=== PATIENT | female | born 1980 | race Caucasian/White ===

== ENCOUNTER 2023-12-11 11:49 | Day surgery (SDC) | payer BC, MEDICAID, SELFPAY ==
[2023-12-11 12:12] VITALS: BMI 22.6
[2023-12-11 12:19] VITALS: BMI 22.6
[2023-12-11 12:35] VITALS: BP 124/82; PULSE 62; RESP 16; TEMP 36.9; O2SAT 100
[2023-12-11] MEDS: Lactated Ringers 1,000 ML 100 ML IVCONT (12:41)
--- NOTE | 2023-12-11 13:15 | HO.ANESPROP2 ---
HPI - Anesthesia Eval Consult details Narrative: 42 yo female patient for EGD, Colonoscopy PMF Active Problems Active Problems: Asthma- remote history. No inhaler use for over 10 years Past Medical History Medical History (Updated 12/11/23 @ 12:11 by Natalya Hutchison RN) Seizure History of miscarriage Pelvic congestion Anxiety Nutcracker phenomenon of renal vein Gilbert disease Family History Family history of problems with anesthesia: No Surgical History Surgical History (Updated 12/11/23 @ 12:07 by Natalya Hutchison RN) History of pelvic surgery History of dilation and curettage Hx of tubal ligation History of Problems with Anesthesia: No Social History Social History Patient Tobacco Use Status: Former Tobacco user Use of substances other than those prescribed or required for medical reasons: No Are you DNR?: No Advance Directives: No Advance Directives Information Provided: Yes Meds Allergies Allergy/AdvReac Type Severity Reaction Status Date / Time barium sulfate Allergy Hives Verified 12/11/23 12:08 esomeprazole [From Nexium] Allergy Hives Verified 12/11/23 12:09 Sulfa (Sulfonamide Allergy Hives Verified 12/11/23 12:09 Antibiotics) sulfamethoxazole Allergy Hives Verified 12/11/23 12:09 [From Bactrim] trimethoprim [From Bactrim] Allergy Hives Verified 12/11/23 12:09 Active Medications: Current Medications Sodium Biphosphate/Sodium Phosphate (Sodium Phosphate,Walton-Dibasic 133 Ml Enema) 133 ml KS ONCE PRN PRN Reason: Poor Colonoscopy Prep Results Home Medications Medication Instructions Recorded Confirmed Last Taken Type lorazepam 0.5 mg tablet (Ativan) mg 12/10/23 12/11/23 10:30 History ondansetron HCl 8 mg tablet mg 12/10/23 12/10/23 Unknown History oxycodone-acetaminophen 5 mg-325 tab 12/10/23 Unknown History mg tablet (Percocet) Exam Height,Weight and Vital Signs: Height 5 ft 7 in Weight 65.431 kg Last Vital Signs Temp 98.4 F 12/11/23 12:35 Pulse 62 12/11/23 12:35 Resp 16 12/11/23 12:35 BP 124/82 12/11/23 12:35 Pulse Ox 100 12/11/23 12:35 O2 Del Method Room Air 12/11/23 12:35 Airway Mallampati Class: II TM Dist: >3cm Neck ROM: Full Loose/Missing/Broken Teeth: Yes (Missing teeth back right and left) Heart: RRR Lungs: CTAB Assessment and Plan Assessment Anesthesia Assessment: Anesthesia Plan Discussed and Chart Reviewed Final Anesthetic Review Family History of Problems with Anesthesia: No History of Problems with Anesthesia: No NPO: Yes ASA Class: II Final Preanesthetic Review: No Changes in Pt Med Stat, Meds/Allgs Chart Reviewed, Consent Obtained/Reviewed and Anes Risks/Benef Reviewed Patient Risk: Intermediate Procedure Risk: Low Assessment/Block/Sedation in SS: Assess/Block/Sedation-SS Anesthetic Plan Anesthetic Plan: MAC: and TIVA Disposition: Standard PACU
[2023-12-11] MEDS: Metoclopramide HCl 10 MG/2 ML VIAL IVPUSH (13:30)
[2023-12-11] MEDS: ondansetron HCL 4 MG/2 ML VIAL IVPUSH (13:33)
[2023-12-11 14:54] VITALS: BP 105/50; PULSE 71; RESP 12; TEMP 36.5; O2SAT 100
--- NOTE | 2023-12-11 14:58 | PM.OP ---
Brief Operative Note Date of Service: 12/11/23 Pre-op diagnosis: Nausea, Diarrhea, Family history of colorectal polyps Post-op diagnosis: other (Small hiatal hernia, Colon polyps) Procedure: EGD with biopsies, Colonoscopy to the cecum and TI with biopsies and cold snare polypectomy x 2 at 20cm Surgeon: Houston Mcgraw MD Anesthesia: MAC Was an Safety Teacher used for this Procedure?: No Estimated blood loss (mL): 2.0 Pathology: other (A. Descending duodenum B. Gastric antrum C. EG Junction at 38cm D. Ascending colon E. Descending colon F. Polyps at 20cm) Condition: stable Disposition: PACU
[2023-12-11 15:09] VITALS: BP 100/60; PULSE 47; RESP 12; O2SAT 100
[2023-12-11 15:24] VITALS: BP 108/66; PULSE 70; RESP 20; TEMP 36.5; O2SAT 100
--- NOTE | 2023-12-11 17:19 | OP_ITS ---
DATE OF SERVICE: 12/11/2023 SURGEON: Houston Mcgraw MD INDICATIONS: The patient presents for evaluation of nausea, irregular bowel movements, occasional rectal bleeding, family history of colorectal polyps, and colorectal cancer screening. Full consent was obtained from her for this, including risks of bleeding and perforation. PREOPERATIVE DIAGNOSIS: POSTOPERATIVE DIAGNOSIS: PROCEDURE PERFORMED: ESTIMATED BLOOD LOSS: COMPLICATIONS: ANESTHESIA: Monitored anesthesia care. ASSISTANTS: SPECIMENS: PREOPERATIVE DIAGNOSES: Nausea, irregular bowel movements, family history of colorectal polyps, colorectal cancer screening, and rectal bleeding. POSTOPERATIVE DIAGNOSES: Nausea, irregular bowel movements, family history of colorectal polyps, colorectal cancer screening, rectal bleeding, minimal hiatal hernia, rule out celiac disease, rule out microscopic colitis, colon polyps, small internal hemorrhoids. PROCEDURES PERFORMED: Esophagogastroduodenoscopy with biopsies, and colonoscopy to the cecum and terminal ileum with biopsies, and cold snare polypectomy x 2. DESCRIPTION OF PROCEDURE: The patient was placed in the left lateral decubitus position. The Olympus video gastroscope was passed in the posterior oropharynx and upper esophagus under direct vision. The scope was passed slowly to the distal esophagus. The gastroesophageal junction appeared normal at 38 cm. There was no sign of any esophagitis nor Arnold's esophagus. The scope entered the stomach. There was a minimal hiatal hernia. The scope was advanced to the pylorus and the duodenum was cannulated to the descending portion. The duodenum, including the bulb, appeared normal without mass or ulceration. Biopsies were obtained from the descending duodenum. The scope was withdrawn back in the stomach. The gastric antrum and body appeared normal with good peristalsis. The scope was retroflexed visualizing the proximal stomach carefully, which appeared normal, without any sign of mass or ulceration. The scope was straightened. Biopsies were obtained from the gastric antrum. The scope was withdrawn back to the esophagus. Biopsies were obtained at the EG junction at 38 cm. Proximal to that the esophageal mucosa appeared normal. The scope was withdrawn from the patient. She was turned around for the colonoscopy. The digital rectal exam revealed no abnormalities. The Olympus video pediatric colonoscope was then entered into the rectum and advanced easily to the cecum. Once in the cecum, I did identify normal-appearing cecal pouch with appendiceal orifice and a normal-appearing ileocecal valve. The terminal ileum was cannulated and appeared normal. The scope was withdrawn back in the colon. The entire cecum and ileocecal valve appeared normal. The scope was slowly withdrawn, assessing all mucosal surfaces carefully. Preparation was excellent. I did not visualize any sign of colitis nor any angiodysplasias. Random biopsies were obtained in the ascending and descending colon. At 20 cm there were 2 approximately 5 mm probable hyperplastic polyps which were each removed by cold snare polypectomy and recovered by suction. The polypectomy sites appeared clean, without any sign of residual polyp nor significant bleeding. I did not visualize any other polyps. In the rectum, the scope was retroflexed, visualizing some small internal hemorrhoids, but no other pathology. The rectal mucosa appeared normal. The scope was straightened out and withdrawn from the patient. She tolerated both procedures well and was returned to the recovery area in stable condition. IMPRESSION: 1. Small colon polyps, status post cold snare polypectomy x 2. 2. Rule out microscopic colitis. 3. Internal hemorrhoids. 4. Minimal hiatal hernia. 5. Rule out celiac disease. PLAN: The results of the pathology will be checked. Even if these are not tubular adenomas, I would recommend a followup coloscopy in 5 years given her family history of significant colorectal polyps in her sister. She was advised to use omeprazole daily for a month or two to see if that helps with her nausea. She was advised to use Metamucil regularly to see if that helps with her irregular bowel movements. She was advised to do her laboratories that I ordered when I first saw her in my office. She will be scheduled for a followup visit as well. She was advised to call sooner as needed. This has been discussed with her father. She was advised not to use any aspirin and NSAIDs for a week. MD ANSLEY Grady/EDIS / [phone] MTDOanh
== END 2023-12-11 15:51 | disposition home or self-care (01) ==
PROVIDERS: PCP Registered Nurse; Visit Provider Internal Medicine
PROC: (CPT 45385; principal; 2023-12-11 13:00)
DX: K62.5 Hemorrhage of anus and rectum (principal); R19.4 Change in bowel habit; K63.5 Polyp of colon; Z83.719 Family history of colon polyps, unspecified; K64.8 Other hemorrhoids; R19.8 Other specified symptoms and signs involving the digestive system and abdomen; R11.0 Nausea; K44.9 Diaphragmatic hernia without obstruction or gangrene; E80.4 Gilbert syndrome; I87.1 Compression of vein; N94.89 Other specified conditions associated with female genital organs and menstrual cycle; F41.9 Anxiety disorder, unspecified; Z79.899 Other long term (current) drug therapy; Z88.1 Allergy status to other antibiotic agents; Z88.2 Allergy status to sulfonamides; Z91.041 Radiographic dye allergy status; Z98.890 Other specified postprocedural states; Z87.891 Personal history of nicotine dependence
CPT/HCPCS: 45385; 45380; 43239; 88305; 88313; 88342; J2250; J2405; J2704; J2765

== ENCOUNTER 2025-07-05 14:09 | Outpatient (REF) | payer OTHER, MEDICAID, SELFPAY ==
[2025-07-05 17:52] LABS: MANUAL DIFF FLAG NO
[2025-07-05 18:25] LABS: Hematocrit 35.9 % (37.0-47.0); Hemoglobin 12.4 g/dl (12.0-16.0); Imm Gran Abs Auto 0.02 X10*3/uL (0.00-0.03); Imm Gran Pct Auto 0.3 % (0.0-0.4); Lymphocytes Absolute Auto 1.5 X10*3/uL (1.2-4.9); Mean Corpuscular HGB Conc 34.5 g/dl (31.0-35.0); Mean Corpuscular Hemoglobin 32.0 pg (27.0-33.0); Mean Corpuscular Volume 92.5 fL (80.0-98.0); NRBC Abs Auto 0.000 X10*3/uL (0.0-0.012); NRBC Pct Auto 0.0 /100WBC (0.0-0.2); Platelet Count 226 X10*3/uL (160-400); Red Blood Count 3.88 X10*6/uL (4.20-5.50); White Blood Count 7.4 X10*3/uL (4.8-10.8)
[2025-07-05 18:37] LABS: Alanine Aminotransferase 26 U/L (0-31); Albumin Level 5.0 g/dL (3.5-5.0); Alkaline Phosphatase 50 U/L (39-117); Anion Gap 12 (12-20); Aspartate Amino Transferase 26 U/L (5-31); Blood Urea Nitrogen 19 mg/dL (9-16); Calcium 9.1 mg/dL (8.4-10.2); Carbon Dioxide 25 mmol/L (22-29); Chloride 107 mmol/L (96-108); Cholesterol 187 mg/dL (<200); Estimated Glomerular Filt Rate > 60; HDL Cholesterol 50 mg/dL (>40); Magnesium 2.1 mg/dL (1.6-2.6); Potassium 4.0 mmol/L (3.3-5.1); Sodium 140 mmol/L (135-145); Total Protein 7.7 g/dL (6.5-8.0); Triglycerides 114 mg/dL (<150)
[2025-07-05 18:59] LABS: Folate 12.3 ng/mL (> or = 4.0); Vitamin B12 433 pg/mL (200-900)
[2025-07-06 08:38] LABS: HBsAGNum1 0.44 S/CO (0.00-0.99); HIV Num 1 0.05 S/CO (0.00-0.99); Hepatitis B Surface Antigen Negative (Negative); ~HepC Num1 0.06 S/CO (0.00-0.79); ~Hepatitis B Surface Antibody REACTIVE (Nonreactive); ~Hepatitis C Antibody Nonreactive (Nonreactive)
[2025-07-10 10:33] LABS: VITAMIN D (1,25 OH) D3 39 pg/mL; Vit D (1,25-Dihydroxy) Total 39 pg/mL (18-72); Vitamin D (1,25 OH) D2 <8 pg/mL
== END 2025-07-05 14:10 | disposition home or self-care (01) ==
LOC: HO.HKASLDS 14:09
PROVIDERS: PCP Student in an Organized Health Care Education/Training Program; Visit Provider Student in an Organized Health Care Education/Training Program
DX: R06.83 Snoring (principal); R53.82 Chronic fatigue, unspecified; N60.19 Diffuse cystic mastopathy of unspecified breast; N94.89 Other specified conditions associated with female genital organs and menstrual cycle; F41.1 Generalized anxiety disorder; N92.0 Excessive and frequent menstruation with regular cycle; K55.1 Chronic vascular disorders of intestine; I87.1 Compression of vein; N95.1 Menopausal and female climacteric states; Z13.1 Encounter for screening for diabetes mellitus
CPT/HCPCS: 36415; 80053; 80061; 82607; 82652; 82746; 83036; 83735; 84443; 85025; 86706; 86803; 87340; 87389; 96127

== ENCOUNTER 2025-07-05 14:09 | Outpatient (AMB) | payer OTHER, MEDICAID, SELFPAY ==
--- OUTSIDE RECORDS SUMMARY | 2024-04-23 09:00 | XMS_ITS ---
Author Organization [facility] Address [address] [place] [address] Care Team Providers Care Brim Pouncer Name Role Phone Kennedi Avila DNP Primary Care Provider Houston Jones [phone] REASON FOR VISIT Patient presents today for Nausea, irregular bowel habits, rectal bleeding Encounters Encounter Location Date Provider Diagnosis [facility] [address] [place] [id number] 04/23/2024 Houston Mcgraw Plan Of Treatment No Information Progress Notes * MARCOS IVEYB:1980 ([age] yo F)Acc No.[id number]:04/23/2024 Progress Notes Patient: MEENA VARELA Provider: Vinh Mcgraw MD :1980 A ge:43 Y S ex:Female Date:04/23/2024 Address:[address] [place], [place] [id number] Pcp:Kennedi Avila DNP Subjective: * Chief Complaints: * 1 . Patient presents today for Nausea, irregular bowel habits, rectal bleeding. * Medical History: Objective: * Vitals: Assessment: Plan: * Treatment: * * The named appointment provid er may or may not be the originator of this progress note, and it is not deemed complete until electronically signed by the appointment provider. Sign off status: Pending * Provider: Vinh Mcgraw MD Date: 0 04/23/2024 Generated for Colettei ng/Famaggieg/eTransmitting on: 05:22 PM EDT
--- OUTSIDE RECORDS SUMMARY | 2024-06-15 10:40 | XMS_ITS ---
Author Organization [facility] Address [address] [place] [address] Care Team Providers Care Assembler Product Name Role Phone Kennedi Avila DNP Primary Care Provider Houston Jones [phone] REASON FOR VISIT Patient presents today for nausea, irregular bowel habits, rectal bleeding Encounters Encounter Location Date Provider Diagnosis [facility] [address] [place] [phone] 06/15/2024 Houston Mcgraw Plan Of Treatment No Information Progress Notes * MARCOS IVEYB:1980 ([age] yo F)Acc No.[id number]:06/15/2024 Progress Notes Patient: MEENA VARELA Provider: Vinh Mcgraw MD :1980 A ge:43 Y S ex:Female Date:06/15/2024 Address:[address] [place], [place] [id number] Pcp:Kennedi Avila DNP Subjective: * Chief Complaints: * 1 . Patient presents today for nausea, irregular bowel habits, rectal bleeding. * Medical History: Objective: * Vitals: Assessment: Plan: * Treatment: * * The named appointment provid er may or may not be the originator of this progress note, and it is not deemed complete until electronically signed by the appointment provider. Sign off status: Pending * Provider: Vinh Mcgraw MD Date: 0 06/15/2024 Generated for Colettei ng/Famaggieg/eTransmitting on: 1 05:22 PM EDT
--- NOTE | 2025-07-05 14:23 | A.OFFPC_ITS ---
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 Required: No Accompanied by: Self / Same As Patient Allergies barium sulfate Allergy (Verified 07/05/25 14:24) Hives esomeprazole (From Nexium) Allergy (Verified 07/05/25 14:24) Hives Sulfa (Sulfonamide Antibiotics) Allergy (Verified 07/05/25 14:24) Hives sulfamethoxazole (From Bactrim) Allergy (Verified 07/05/25 14:24) Hives trimethoprim (From Bactrim) Allergy (Verified 07/05/25 14:24) Hives Tobacco use date assessed: 07/05/25 Dental Screening Dental Screen Date: 07/05/25 Did you have a dental visit in the last 12 months?: Yes Did you have a dental problem in the last 6 months where you did not have access to dental care?: No Was dental information given to patient?: Patient has dentist HPI HPI Comments History of Present Illness Details History of Present Illness The patient is a 44-year-old female presenting for primary care management and follow-up on multiple vascular compressions and other health concerns. Superior mesenteric artery syndrome: - Diagnosed a few years ago, the patient experiences compression of the duodenum by the superior mesenteric artery, leading to symptoms managed with Zofran to improve quality of life. 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 Pelvic congestion syndrome: - Initially diagnosed with pelvic conges tion syndrome, the patient underwent coil embolization and sclerotherapy, which did not alleviate symptoms. Fibrocystic breast changes: - Following a mammogram in 2023, two lum ps were identified in the right breast, with a biopsy confirming fibrocystic changes; further imaging of the left breast is pending. Generalized anxiety disorder: - The patient has a history of generaliz ed anxiety disorder, managed with lorazepam as needed, following unsuccessful trials of SSRIs and therapy. Menopausal symptoms: - The patient experiences night sweats a nd sleep disturbances, previously managed with estradiol and progesterone, which were discontinued due to clinic closure. Heavy menstrual bleeding with clotting: - The patient reports heavy menstrual bl eeding with clotting, which has been progressively worsening. Review of Systems - Cardiovascular: Denies chest pain or p alpitations. - Respiratory: Reports snoring and occas ional loud snoring, denies dyspnea. - Gastrointestinal: Reports flank pain a nd pelvic pressure, denies nausea or vomiting. - Genitourinary: Reports heavy menstrual bleeding with clotting. - Neurological: Denies headaches or dizz iness. - Psychiatric: Reports anxiety, denies d epression. 10-point ROS reviewed and negative excep t as noted in HPI Past Medical History - Superior mesenteric artery syndrome di agnosed a few years ago. - Nutcracker syndrome with stent placeme nt in the left renal vein. - May-Thurner syndrome diagnosed a few y ears ago. - Pelvic congestion syndrome treated wit h coil embolization and sclerotherapy. - Fibrocystic breast changes identified in 2023. - Generalized anxiety disorder managed w ith lorazepam. - Menopausal symptoms managed with estra diol and progesterone. Health Maintenance - Screening: Pap smear and mammogram up to date, with pending follow-up imaging for fibrocystic changes. - Lifestyle: Regular exercise, balanced diet with occasional junk food, and stress management through non-pharmacological means. Physical Exam General: Well-appearing, in no acute distress. Vital signs: Within normal limits. HEENT: Normocephalic, atraumatic. PERRLA, EOMI. Conjunctiva clear, sclera anicteric. Oropharynx clear, mucous membranes moist. TMs intact bilaterally. Neck: Supple, no lymphadenopathy, no thyromegaly, no JVD or carotid bruits. Cardiovascular: RRR, normal S1/S2, no murmurs, rubs, or gallops. Peripheral pulses 2+ and symmetric. No edema. Respiratory: Lungs clear to auscultation bilaterally, no wheezes, rales, or rhonchi. Normal effort. Abdomen: Soft, non-tender, non-distended. Normoactive bowel sounds. No hepatosplenomegaly, no masses. MSK: Full range of motion, no joint swelling or deformity. Normal gait. Skin: Warm, dry, intact. No rashes, lesions, or pallor. Neuro: Alert and oriented x3. Cranial nerves II-XII intact. Strength 5/5 throughout. Sensation intact. Reflexes 2+ symmetric. Normal coordination and gait. Psych: Appropriate mood and affect. Normal judgment and insight. Plan 1. Superior Mesenteric Artery Syndrome - Continue management with Zofran for sy mptom relief, monitor for any changes in symptoms. 2. Nutcracker Syndrome - Annual follow-up with Dr. Rivas, recent stent ultrasound shows good flow. 3. May-Thurner Syndrome - No intervention required at this time, continue monitoring blood flow. 4. Pelvic Congestion Syndrome - No further intervention planned, lena nue symptom management as needed. 5. Fibrocystic Breast Changes - Schedule follow-up imaging for the lef t breast, continue monitoring for any changes. 6. Generalized Anxiety Disorder - Continue lorazepam as needed, consider non-pharmacological interventions for anxiety management. 7. Menopausal Symptoms - Discuss alternative treatments for men opausal symptoms, consider referral to MEDICAL ARTIST if needed. 8. Heavy Menstrual Bleeding With Clottin g - Evaluate for potential causes, conside r further gynecological evaluation. Discussion Notes During the visit, we discussed the management of the patient's multiple vascular compressions, including the use of Zofran for superior mesenteric artery syndrome and the annual follow-up for Nutcracker syndrome. We also addressed the need for follow-up imaging for fibrocystic breast changes and explored alternative treatments for menopausal symptoms. The importance of managing anxiety with both pharmacological and non-pharmacological methods was emphasized. A home sleep study was recommended to evaluate potential sleep apnea. We agreed to schedule a Pap smear and further discuss menopausal symptom management during the next visit. Patient was informed and verbally consented to the use of an ambient scribe for clinic note documentation during this visit. Patient Instructions - Continue taking Zofran as prescribed f or symptom relief. - Schedule follow-up imaging for the lef t breast. - Use lorazepam as needed for anxiety, b ut explore non-drug methods too. - Prepare for a home sleep study to asse ss for sleep apnea. - Schedule a Pap smear and discuss menop ausal symptoms at the next visit. Total time spent caring for the patient today was 30 minutes. This includes time spent before the visit reviewing the chart, time spent documenting, diagnostic imaging, medications, performing a medically necessary evaluation, counseling on diagnoses, care coordination, ordering appropriate tests. [facility] Medical History (Updated 07/05/25 @ 14:57 by Galileo Ortiz MD) Chronic fatigue Snoring Fibrocystic breast changes Seizure History of miscarriage Pelvic congestion Anxiety Nutcracker phenomenon of renal vein Gilbert disease Surgical History History of pelvic surgery History of dilation and curettage Hx of tubal ligation Family History (Updated 07/05/25 @ 14:38 by Francesca Santana CMA) Father Heart attack Hypercholesteremia Mother Embolism Social History (Updated 07/05/25 @ 14:26 by Navid Payne MA) Housing: Apartment Alcohol intake: current Alcohol intake frequency: does not drink Patient Tobacco Use Status: Former Tobacco user service: No Current occupational status: employed Cognitive needs: No Hearing needs: No Vision needs: Yes (rx glasses) Questionnaire PHQ-9 Over the last 2 weeks, how often have you been bothered by any of the following problems? 1. Little interest or pleasure in doing things: not at all 2. Feeling down, depressed, or hopeless: not at all 3. Trouble falling or staying asleep, or sleeping too much: several days 4. Feeling tired or having little energy: several days 5. Poor appetite or overeating: not at all 6. Feeling bad about yourself - or that you are a failure or have let yourself or your family down: not at all 7. Trouble concentrating on things, such as reading the newspaper or watching television: several days 8. Moving or speaking so slowly that other people could have noticed. Or the opp osite - being so fidgety or restless that you have been moving around a lot more than usual: not at all 9. Thoughts that you would be better off or of hurting yourself in some way: not at all Total score: 3 Source: Developed by Drs. Houston Kendrick, Adeola Wynne, Juancho Child and colleagues, with an educational alan from [employer]. Thrive Questionnaire Date Thrive assessed: 06/15/25 I am a: Patient What is your living situation today?: I have a steady place to live Within the past 12 months, did the food you bought not last and you didn't have the money to get more?: Never true Within the past 12 months, did you worry whether your food would run out before you got money to buy more?: Never true Do you have trouble paying for medicines?: No Do you have trouble getting transportation to medical appointments?: No Do you have trouble paying your heating and electricity bill?: No Do you have trouble taking care of your child, family member or friend?: No Do you have trouble with day-to-day activities such as bathing, preparing meals, shopping, managing finances, etc.?: No Are you currently unemployed and looking for a job?: No Are you interested in more education?: No Please select the resources that you would like help with: None Currently or been in a relationship where the following occur: No concerns reported THRIVE Score: 0 Physical exam (Primary Care) Vital Signs: Last Vital Signs Temp 98.2 F 07/05/25 14:30 Pulse 64 07/05/25 14:30 BP 112/64 07/05/25 14:30 Pulse Ox 98 07/05/25 14:30 Oxygen Delivery Method Room Air 07/05/25 14:30 BMI result Body Mass Index 23.0 Tobacco/Smoking Status: Tobacco use Status Tobacco use date assessed 07/05/25 07/05/25 14:28 Patient Tobacco Use Status Former Tobacco user 07/05/25 14:39 PHQ-9: PHQ-9 Score PHQ-9: Total score 3 07/05/25 14:39 Thrive Assessment: Date of Thrive Assessment Date Thrive assessed 06/15/25 07/05/25 14:28 Currently or been in a relationship where the following occur: No concerns reported Coding Level of Care Code New Pt Level 4 (49367) Diagnoses Fibrocystic breast changes N60.19 Superior mesenteric artery syndrome K55.1 May-Thurner syndrome I87.1 Pelvic congestion syndrome N94.89 Generalized anxiety disorder F41.1 Menopausal symptoms N95.1 Menorrhagia N92.0 Assessment & Plan Assessment & Plan (1) Fibrocystic breast changes: Code(s): N60.19 - Diffuse cystic mastopathy of unspecified breast Category: Medical (2) Superior mesenteric artery syndrome: Code(s): K55.1 - Chronic vascular disorders of intestine (3) May-Thurner syndrome: Code(s): I87.1 - Compression of vein (4) Pelvic congestion syndrome: Code(s): N94.89 - Other specified conditions associated with female genital organs and menstrual cycle (5) Generalized anxiety disorder: Code(s): F41.1 - Generalized anxiety disorder (6) Menopausal symptoms: Code(s): N95.1 - Menopausal and female climacteric states (7) Menorrhagia: Code(s): N92.0 - Excessive and frequent menstruation with regular cycle Plan Orders: Orders Comprehensive Met. Panel Today Z13.9 - Encounter for screening, unspecified Vitamin D 1,25 dihydroxy Today Z13.9 - Encounter for screening, unspecified Magnesium Today Z13.9 - Encounter for screening, unspecified MM diagnostic mammo BI Today N60.19 - Diffuse cystic mastopathy of unspecified breast US breast LT limited Today N60.19 - Diffuse cystic mastopathy of unspecified breast RT home sleep study Today R06.83 - Snoring, R53.82 - Chronic fatigue, unspecified Complete Blood Count Auto Diff Today Z13.9 - Encounter for screening, unspecified Hemoglobin A1c Today Z13.9 - Encounter for screening, unspecified Hepatitis B Surface Antibody Today Z13.9 - Encounter for screening, unspecified Hepatitis B Surface Antigen Today Z13.9 - Encounter for screening, unspecified Hepatitis C Antibody Today Z13.9 - Encounter for screening, unspecified HIV Ab/Ag Today Z13.9 - Encounter for screening, unspecified Lipid Panel Today Z13.9 - Encounter for screening, unspecified TSH reflex Free T4 Today Z13.9 - Encounter for screening, unspecified Vitamin B12 and Folate Today Z13.9 - Encounter for screening, unspecified US breast RT limited Today N60.19 - Diffuse cystic mastopathy of unspecified breast
[2025-07-05 14:30] VITALS: BP 112/64; PULSE 64; TEMP 36.8; O2SAT 98; BMI 23.0
--- OUTSIDE RECORDS SUMMARY | 2025-07-05 17:22 | XMS_ITS | Patient Health Record ---
Author Organization [facility] Address [address] [place] [address] Care Team Providers Care Maintenance Mechanic 2Nd Shift Name Role Phone Kennedi Avila DNP Primary Care Provider Houston Jones Unavailable [phone] Allergies Allergen (clinical drug ingredient) Drug/Non Drug Allergy documented on EMR Reaction Allergy Type Onset Date Status Substance with sulfonamide structure and antibacterial mechanism of action (substance) Sulfa Antibiotics Unknown Drug Allergy A ctive barium sulfate Barium Sulfate Unknown Drug Allergy Active esomeprazole NexIUM Unknown Drug Allergy Acti ve sulfamethoxazole / trimethoprim Bactrim Unknown Drug Allergy Active Reason For Referral No Information Medications Medication SIG (Take, Route, Frequency, Duration) Notes Start Date End Date Status LORazepam 0.5 MG Oral for 28 A ctive Ondansetron 8 MG DISSOLVE 1 TABLET BY MOUTH ON THE TONGUE NEEDED TWO TIMES DAILY X10 DAYS Oral for 10 Active oxyCODONE-Acetaminophen 5-325 MG Oral for 5 Active Omeprazole 20 MG 1 Orally Once a day every morning for 30 day(s) 12/03/2023 Active Immunizations Vaccine Route Administration Date Status Comme nts Influenza Unknown 12/03/2023 Refused Social History Tobacco Use: Social History Observation Description Date Details (start date - stop date) Former Smoker NA - NA Tobacco Use/Smoking Question Answer Notes Patient is a former smoker Alcohol Screen Question Answer Notes Did you have a drink contain ing alcohol in the past year? Yes How often did you have a dri nk containing alcohol in the past year? 2 to 4 times a month (2 points) How many drinks did you have on a typical day when you were drinking in the past year? 1 or 2 drinks (0 point) How often did you have 6 or more drinks on one occasion in the past year? Never (0 point) Points 2 Interpretation Negative Section Notes: Nonsmoker, no significant al cohol Problems Problem Type SNOMED Code ICD Code Onset Dates Problem Status W/U Status Risk Notes Problem Rectal bleeding (45404840) Rectal bleeding (K62.5) Active confirmed Problem Nausea (088365054) Nausea (R11.0) Active confirmed Problem Irregular bowel habits (899434911) Irregular bowel habits (R19.8) Active confirmed Problem Family history of polyp of colon (572784787) Family history of colon polyps, unspecified (Z83.719) Active confirmed Plan Of Treatment Pending Test Test Name Order Date LIVER PROFILE 12/03/2023 CBC w DIFF 12/03/2023 CELIAC PANEL #10 12/03/2023 TSH reflex Free T4 12/03/2023 Future Test Test Name Order Date UPPER GI ENDOSCOPY 12/03/2023 COLONOSCOPY 12/03/2023 Insurance Providers Payer Name Payer Address Payer Phone Subscriber Number Group Number Insured Name Patient Relationship to Insured Coverage Start Date Coverage End Date [facility] BLUE BCBS [employer] CLAIMS [address] [place] [address] [phone] [id number] MEENA IVEY Self - patient is the insured MEDICAID OF [facility] [address] [place] [address] [id number] MEENA IVEY Self - patient is the insured Medical (General) History Medical History History ICD Code Pelvic congestion syndrome 2 022, status post pelvic vein embolization by IR at [facility] 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
--- OUTSIDE RECORDS SUMMARY | 2025-07-05 17:22 | XMS_ITS ---
[facility] Organization Unknown Encounters Encounter Type Encounter Reason Primary Diagnosis Location Date Emergency Other specified conditions associated with female genital organs and menstrual cycle [facility] 06/15/2022 Care Team Organization Name Specialty Phone Email Start Date End Da te [facility] NO PCP Primary Care 06/15/2022 06/15/2022 [facility] 06/15/2022
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
--- OUTSIDE RECORDS SUMMARY | 2025-07-05 17:22 | XMS_ITS | Clinical Summary ---
Author Organization [facility] [address] [place] [address] [place] [phone] Phone Care Team Providers Care Bark Spudder Name Role Phone Rehan Louisejosselin Aparicio Primary Care Provider [phone] Allergies Active Allergy Reactions Criticality Noted Date Comments Barium Sulfate 06/21/2014 Other Reaction(s): Hives/Urticaria Esomeprazole Magnesium 06/21/2014 Other Reaction(s): Hives/Urticaria Morphine 06/21/2014 Other Reaction(s): Hives/Urticaria Sulfamethoxazole-Trimethopri m 06/21/2014 Other Reaction(s): Hives/Urticaria Active Problems Problem Noted Date Diagnosed Date Anxiety disorder 09/16/2024 Overview (09/16/2024): severe Gilbert disease 09/16/2024 Overview (09/16/2024): hyperbilirubinemia; careful with estrogen Tobacco use disorder 09/16/2024 Underweight 04/17/2016 Surgical History Surgery Date Site/Laterality Comments COLONOSCOPY W/ BIOPSIES 1997 PROCEDURE: DE COLONOSCOPY STOMA W/BIOPSY SINGLE/MULTIPLE; COMMENT: r/o crohn's OTHER SURGICAL HISTORY 1997 PROCEDURE: OUTSIDE ENDOSCOPY OTHER SURGICAL HISTORY 2014 PROCEDURE: ---- OTHER ----; COMMENT: d&c august OTHER SURGICAL HISTORY 2015 PROCEDURE: ---- OTHER ----; COMMENT: miscarriage #3 TUBAL LIGATION 12/19/2020 PROCEDURE: HISTORICAL TUBAL LIGATION; COMMENT: Dr. Wilcox Medical History Medical History Date Comments Gilbert disease DX:Gilbert disea se; COMMENT: hyperbilirubinemia; careful with estrogen Anxiety disorder DX:Anxiety diso rder; COMMENT: severe Tobacco use disorder DX:Tobacco use disorder Family History Medical History Relation Name Comments Hypertension Father Other: subdural hematoma Mother Breast cancer Paternal Grandmother uncert ain if bilateral ADD / ADHD Son 1 Relation Name Status Comments Brother Alive Healthy Daughter 1 Alive Autoimmune neut ropenia Daughter 2 Alive Torticollis, sc oliosis Father Alive HTN Mother (Age 66) subdural h ematoma Paternal Grandmother Sister 1 Alive Fibromyalgia Sister 2 Alive ?Fibromyalgia Son 1 Son 2 Alive ADHD, Pica Social History Tobacco Use Types Packs/Day Years Used Date Smoking Tobacco: Former Cigarettes Smokeless Tobacco: Never Alcohol Use Standard Drinks/Week Comments Yes 0.8 (1 standard drink = 0.6 oz p ure alcohol) Comments Unknown Sex and Gender Information Value Date Recorded Sex Assigned at Female 02/07/2025 1:53 PM EDT Legal Sex Female 2:49 PM EST Gender Identity Female 02/07/2025 1:53 PM EDT Sexual Orientation Not on file Obstetrics History Plan of Treatment Health Maintenance Due Date Last Done Comments Breast Cancer Screening 1982 DTaP,Tdap,and Td Vaccines (1 - Tdap) 2001 Hepatitis B Vaccines (1 of 3 - 19+ 3-dose series) 2001 HPV Vaccines (1 - 3-dose SCD M series) 2009 Cervical Cancer Screening: P ap Smear 11/14/2018 11/14/2015 HIV Screening 08/28/2022 Hepatitis C Screening 08/28/2022 Social Influencers of Health Screening 08/28/2022 Depression Screening 09/29/2024 COVID-19 Vaccine ( - 2023-2 5 season) 2025 Influenza Vaccine (#1) 2025 RSV Immunization Adult Patie nts (1 - 1-dose 75+ series) 2057 HIB Vaccines Aged Out No longer eligi ble based on patient's age to complete this topic Hepatitis A Vaccines Aged Out No long er eligible based on patient's age to complete this topic IPV Vaccines Aged Out No longer eligi ble based on patient's age to complete this topic MMR Vaccines Aged Out No longer eligi ble based on patient's age to complete this topic Meningococcal ACWY Vaccine Aged Out N o longer eligible based on patient's age to complete this topic Meningococcal B Vaccine Aged Out No l onger eligible based on patient's age to complete this topic Pneumococcal Vaccine: Pediat rics (0 to 5 Years) and At-Risk Patients (6 to 49 Years) Aged Out No longer eligi ble based on patient's age to complete this topic RSV Immunization Patients Un sarai 20 months Aged Out No longer eligible b ased on patient's age to complete this topic Varicella Vaccines Aged Out No longer eligible based on patient's age to complete this topic Procedures Procedure Name Priority Date/Time Associated Diagnosis Comments PAP SMEAR Routine 11/14/2015 from Last 3 Months or Most Recently Relevant to Health Maintenance Results * Pap Smear (11/14/2015) Pap smear abstracted, no interpretation Historical Provider MD HEALTH MAINTENANCE Final Result from Last 3 Months or Most Recently Relevant to Health Maintenance Insurance [facility] MEDICAID - [place] Care Teams Bark Spudder Relationship Specialty Start Date End Date Louise Van [address] [place] [phone] PCP - General 01/30/24
--- OUTSIDE RECORDS SUMMARY | 2025-07-05 17:22 | XMS_ITS | Clinical Summary ---
Author Organization [facility] Address [address] [place] [address] Care Team Providers Care Indian Trader Name Role Phone Pcp, No Primary Care Provider Unavailabl e Allergies Active Allergy Reactions Criticality Noted Date Comments Barium Iodid Unknown/Patient and Family Unable to Define Medium 06/15/2022 Barium Sulfate Hives Medium 06/15/2022 Esomeprazole Unknown/Patient and Family Unable to Define Medium 06/15/2022 Morphine Unknown/Patient and Family Unable to Define Medium 06/15/2022 Rubus Fruticosus Unknown/Patient and Family Unable to Define Medium 06/15/2022 Sulfamethoxazole-Trimethopri m Unknown/Patient and Family Unable to Define Medium 06/15/2022 Social History Tobacco Use Types Packs/Day Years Used Date Smoking Tobacco: Never Smokeless Tobacco: Never Comments No Sex and Gender Information Value Date Recorded Sex Assigned at Female 09/09/2023 5:21 PM EST Legal Sex Female 6:42 PM EST Gender Identity Female 09/09/2023 5:21 PM EST Sexual Orientation Heterosexual (straight) 09/09 5:21 PM EST Last Filed Vital Signs Vital Sign Reading Time Taken Comments Blood Pressure 117/80 06/15/2022 1:01 PM EDT Pulse 64 06/15/2022 1:01 PM EDT Temperature 36.7 C (98.1 F) 06/15/2022 1:01 PM EDT Respiratory Rate 18 06/15/2022 1:01 PM EDT Oxygen Saturation 99% 06/15/2022 1:01 PM EDT Inhaled Oxygen Concentration - - Weight 61.2 kg (135 lb) 06/15/2022 9:36 AM EDT Height 170.2 cm (5' 7 ) 06/15/2022 9:36 AM EDT Body Mass Index 21.14 06/15/2022 9:36 AM EDT Plan of Treatment Health Maintenance Due Date Last Done Comments Hepatitis C Virus Screening 1982 HIV Screening 12/14/1995 DTaP/Tdap/Td Vaccines (1 - Tdap) 2001 Hepatitis B Vaccines (1 of 3 - 19+ 3-dose series) 2001 Pap Smear (Ages 21-65) 12/14/2003 Mammogram 2022 Influenza Vaccine 04/29/2025 COVID-19 Vaccine (3 - 2024-2 6 season) 2025 06/09/2021, 05/19/2021 HPV Vaccines (No Doses Required) Completed Pneumococcal Vaccine: Pediatric (0-5 Years) and At-Risk Patients (6 to 49 Years) Aged Out No longer eligible b ased on patient's age to complete this topic Insurance [facility] [place] Care Teams Indian Trader Relationship Specialty Start Date End Date Pcp, No PCP - General General Medicine 06/15/22
--- OUTSIDE RECORDS SUMMARY | 2025-07-05 17:22 | XMS_ITS | Clinical Summary ---
Author Organization [facility] Address [address] [address] Phone Care Team Providers Care Storage Management Consultant Name Role Phone Kennedi Avila REPEATER OPERATOR Primary Care Provider + Allergies Active Allergy Reactions Criticality Noted Date Comments Esomeprazole Magnesium 11/14/2023 Sulfamethoxazole-Trimethoprim Hives Medium 2021 Medications ibuprofen (ADVIL) 200 MG tablet 08/08/2023 Activ e LORazepam (ATIVAN) 0.5 MG tablet 09/29/2022 Activ e ondansetron (ZOFRAN) 8 MG tablet 08/29/2022 Active PERCOCET 5-325 mg per tablet 11/05/2023 Active predniSONE (DELTASONE) 10 MG tablet 11/05/2023 Active Active Problems No known active problems Family History Medical History Relation Comments Clotting disorder Mother Varicose veins Neg Hx Relation Status Comments Mother Social History Tobacco Use Types Packs/Day Years Used Date Smoking Tobacco: Never Assessed Tobacco Cessation:Counseling Given: Not Answered Education Answer Date Recorded Are you interested in more education? Not on deirdre e 09/09/2023 Are you concerned about learning? Not on file 09/09/2023 No 09/09/2023 No 09/09/2023 Digital Access Answer Date Recorded No 09/09/2023 No 09/09/2023 Reliable internet access at home? Not on file 09/09/2023 Device with a working camera? Not on file Comments No Sex and Gender Information Value Date Recorded Sex Assigned at Female 08/25/2023 12:43 PM EST Legal Sex Female 12:39 PM EST Gender Identity Female 08/25/2023 12:43 PM EST Sexual Orientation Straight 08/25/2023 12 :43 PM EST Last Filed Vital Signs Vital Sign Reading Time Taken Comments Blood Pressure 129/84 11/14/2023 4:06 PM EST Pulse 108 11/14/2023 4:06 PM EST Temperature - - Respiratory Rate - - Oxygen Saturation - - Inhaled Oxygen Concentration - - Weight - - Height - - Body Mass Index - - Plan of Treatment Health Maintenance Due Date Last Done Comments Adult Td,Tdap Booster 1982 DEPRESSION SCREENING 1994 SMOKING Hx and SMOKELESS TOB ACCO SCREENING 12/14/1995 HEPATITIS C SCREENING 2000 HIV ONE-TIME SCREENING (18-6 5 YEARS) 2000 PAP SMEAR 12/14/2003 MAMMOGRAM 2022 INFLUENZA VACCINE (#1) 2025 COVID-19 VACCINE (2024-2 6 season) 2025 HEPATITIS A VACCINES Aged Out No long er eligible based on patient's age to complete this topic HIB VACCINES Aged Out No longer eligi ble based on patient's age to complete this topic MENINGOCOCCAL VACCINES (ACWY) Aged Out No longer eligible based on patient's age to complete this topic MENINGOCOCCAL VACCINES (B) Aged Out N o longer eligible based on patient's age to complete this topic PNEUMOCOCCAL VACCINES (0-49 years) Aged Out No longer eligible based on patient's age to complete this topic Medical Devices Not on file [place] [address] [place] [address] [place] [place] [address] [place] [place] [address] Member Subscriber Plan / Payer (Ef fective 2022-Present) Name:Danek, Neto Relation to Subscriber:Spouse Name:MALCOLM MALDONADO Date of :1982 (Home) Address: [address] [place] [id number] Payer ID:[id number] (NAIC) Type:O Address: [place] [id number] [place] [id number] [place], [place] [address] [address] Member Subscriber Plan / Payer (Ef fective 2022-) Name:Neto Sepulveda Relation to Subscriber:Spouse Name:MALCOLM MALDONADO Date of :1982 (Home) Address: [address] [place] [address] Payer ID:[id number] (NAIC) Type:O Address: [facility] [id number] [place] [id number] [place], [place] [address] [address] [place] [address] [place] Care Teams Storage Management Consultant Relationship Specialty Start Date End Date Kennedi Avila NP [address] [place] [phone] PCP - General Nurse Practitioner 09/09/23 Additional Source Comments The information contained in this document represents components of the legal health record. It is not the complete legal health record.[facility]
== END 2025-07-05 15:11 | disposition home or self-care (01) ==
LOC: HO.HMCFMS 14:10
PROVIDERS: PCP Student in an Organized Health Care Education/Training Program; Visit Provider Student in an Organized Health Care Education/Training Program
DX: N60.19 Diffuse cystic mastopathy of unspecified breast (principal); K55.1 Chronic vascular disorders of intestine; I87.1 Compression of vein; N94.89 Other specified conditions associated with female genital organs and menstrual cycle; F41.1 Generalized anxiety disorder; N95.1 Menopausal and female climacteric states; N92.0 Excessive and frequent menstruation with regular cycle

== ENCOUNTER 2025-07-19 14:25 | Outpatient (AMB) | payer OTHER, MEDICAID, SELFPAY ==
[2025-07-19 14:30] VITALS: BP 125/60; PULSE 82; RESP 16; TEMP 36.6; O2SAT 97; BMI 23.2
--- NOTE | 2025-07-19 14:30 | A.OFFPC_ITS ---
Vital Signs 07/19/25 14:30 Height 5 ft 6.65 in Weight 146 lb 6 oz BMI 23.2 BP 125/60 Blood Pressure Location Lt brachial Position Sitting Respiration 16 Pulse 82 Pulse Source Pulse Oximeter Temp 98 F Temp Source Oral Pulse Oximetry (%) 97 Oxygen Delivery Method Room Air Intake Visit Reasons: 2 week follow up Die Grinder Required: No Accompanied by: Self / Same As Patient Allergies barium sulfate Allergy (Verified 07/05/25 14:24) Hives esomeprazole (From Nexium) Allergy (Verified 07/05/25 14:24) Hives Sulfa (Sulfonamide Antibiotics) Allergy (Verified 07/05/25 14:24) Hives sulfamethoxazole (From Bactrim) Allergy (Verified 07/05/25 14:24) Hives trimethoprim (From Bactrim) Allergy (Verified 07/05/25 14:24) Hives Tobacco use date assessed: 07/19/25 Dental Screening Dental Screen Date: 07/19/25 Did you have a dental visit in the last 12 months?: Yes Did you have a dental problem in the last 6 months where you did not have access to dental care?: No Was dental information given to patient?: Patient has dentist HPI HPI Comments History of Present Illness Details Consent Patient was informed and verbally consented to the use of an ambient scribe for clinic note documentation during this visit. History of Present Illness The patient is a 44-year-old female presenting for a routine wellness visit and management of iron deficiency anemia. Iron deficiency anemia: The patient has a history of iron deficiency anemia, with current lab results indicating low red blood cells and hematocrit levels. She is not currently taking any medication for this condition. The plan is to start iron supplementation with vitamin C to enhance absorption, with instructions on timing relative to meals. Hyperlipidemia: The patient's LDL cholesterol is slightly elevated, attributed to dietary habits, particularly cheese consumption. She has been advised to reduce cheese intake to manage her cholesterol levels. Medications: - Lorazepam, as needed for anxiety Diagnostic Results: - Complete Blood Count (CBC): Low red bl ood cells and hematocrit, normal white blood cells and platelets - Comprehensive Metabolic Panel (CMP): N ormal renal function, slightly elevated BUN, normal electrolytes, calcium, and magnesium - Lipid Panel: Elevated LDL cholesterol - Hemoglobin A1c: Within normal range - Hepatitis B and C, HIV: Negative Review of Systems 10-point ROS reviewed and negative excep t as noted in HPI Past Medical History Health Maintenance - Preventative care: Routine wellness vi sit Physical Exam General: Well-appearing, in no acute distress. Vital signs: Within normal limits. HEENT: Normocephalic, atraumatic. PERRLA, EOMI. Conjunctiva clear, sclera anicteric. Oropharynx clear, mucous membranes moist. TMs intact bilaterally. Neck: Supple, no lymphadenopathy, no thyromegaly, no JVD or carotid bruits. Cardiovascular: RRR, normal S1/S2, no murmurs, rubs, or gallops. Peripheral pulses 2+ and symmetric. No edema. Respiratory: Lungs clear to auscultation bilaterally, no wheezes, rales, or rhonchi. Normal effort. Abdomen: Soft, non-tender, non-distended. Normoactive bowel sounds. No hepatosplenomegaly, no masses. MSK: Full range of motion, no joint swelling or deformity. Normal gait. Skin: Warm, dry, intact. No rashes, lesions, or pallor. Neuro: Alert and oriented x3. Cranial nerves II-XII intact. Strength 5/5 throughout. Sensation intact. Reflexes 2+ symmetric. Normal coordination and gait. Psych: Appropriate mood and affect. Normal judgment and insight. Plan 1. Iron Deficiency Anemia - Initiate iron supplementation with vit christopher C to enhance absorption. - Monitor for constipation and advise on dietary adjustments if needed. 2. Hyperlipidemia - Advise dietary modifications, specific ally reducing cheese intake. Discussion Notes I discussed the patient's lab results, noting low red blood cells and hematocrit, and recommended starting iron supplementation with vitamin C to improve absorption. I also advised on potential side effects such as constipation and suggested dietary adjustments if necessary. Regarding hyperlipidemia, I recommended reducing cheese intake to manage LDL cholesterol levels. Patient Instructions - Start taking iron supplements with vit christopher C as directed. - Monitor for constipation and increase fiber and water intake if needed. - Reduce cheese consumption to help lowe r cholesterol levels. Medical Decision Making The decision to initiate iron supplementation was based on the patient's low red blood cells and hematocrit levels, indicating iron deficiency anemia. Vitamin C was included to enhance iron absorption, and potential side effects were discussed. For hyperlipidemia, dietary modification was recommended to address the slightly elevated LDL cholesterol. Total time spent caring for the patient today was 30 minutes. This includes time spent before the visit reviewing the chart, time spent documenting, and time spent reviewing laboratory results, diagnostic imaging, medications, performing a medically necessary evaluation, counseling on diagnoses, care coordination. 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 Surgical History History of pelvic surgery History of dilation and curettage Hx of tubal ligation Family History Father Heart attack Hypercholesteremia Mother Embolism Social History Housing: Apartment Alcohol intake: current Alcohol intake frequency: does not drink Patient Tobacco Use Status: Former Tobacco user service: No Current occupational status: employed Cognitive needs: No Hearing needs: No Vision needs: Yes (rx glasses) Questionnaire Thrive Questionnaire Date Thrive assessed: 06/15/25 I am a: Patient What is your living situation today?: I have a steady place to live Within the past 12 months, did the food you bought not last and you didn't have the money to get more?: Never true Within the past 12 months, did you worry whether your food would run out before you got money to buy more?: Never true Do you have trouble paying for medicines?: No Do you have trouble getting transportation to medical appointments?: No Do you have trouble paying your heating and electricity bill?: No Do you have trouble taking care of your child, family member or friend?: No Do you have trouble with day-to-day activities such as bathing, preparing meals, shopping, managing finances, etc.?: No Are you currently unemployed and looking for a job?: No Are you interested in more education?: No Please select the resources that you would like help with: None Currently or been in a relationship where the following occur: No concerns reported THRIVE Score: 0 Physical exam (Primary Care) Vital Signs: Last Vital Signs Temp 98 F 07/19/25 14:30 Pulse 82 07/19/25 14:30 Resp 16 07/19/25 14:30 BP 125/60 07/19/25 14:30 Pulse Ox 97 07/19/25 14:30 Oxygen Delivery Method Room Air 07/19/25 14:30 BMI result Body Mass Index 23.2 Tobacco/Smoking Status: Tobacco use Status Tobacco use date assessed 07/19/25 07/19/25 14:34 Patient Tobacco Use Status Former Tobacco user 07/19/25 14:34 Thrive Assessment: Date of Thrive Assessment Date Thrive assessed 06/15/25 07/19/25 14:34 Currently or been in a relationship where the following occur: No concerns reported Coding Level of Care Code Est Pt Level 4 (86861) Diagnoses Iron deficiency anemia D50.9 Hyperlipidemia E78.5 Assessment & Plan Assessment & Plan (1) Iron deficiency anemia: Code(s): D50.9 - Iron deficiency anemia, unspecified (2) Hyperlipidemia: Code(s): E78.5 - Hyperlipidemia, unspecified Plan Medications: New ascorbic acid (vitamin C) 500 mg PO DAILY 90 tabs 0RF ferrous sulfate 324 mg PO DAILY 90 tabs 0RF lorazepam 0.5 mg PO DAILY PRN 30 tabs 0RF anxiety
--- OUTSIDE RECORDS SUMMARY | 2025-07-19 19:31 | XMS_ITS | Clinical Summary ---
Author Organization [facility] Address [address] [place] [address] Care Team Providers Care Calculating Machine Mechanic Name Role Phone Pcp, No Primary Care [...] patient's age to complete this topic Insurance [facility] Care Teams Calculating Machine Mechanic Relationship Specialty Start Date End Date Pcp, No PCP - General General Medicine 06/15/22
--- OUTSIDE RECORDS SUMMARY | 2025-07-19 19:31 | XMS_ITS | Clinical Summary ---
Author Organization [facility] [address] [place] [address] [place] [phone] Phone Care Team Providers Care Pig Breeder Name Role Phone Rehan Louisejosselin Aparicio Primary Care Provider [phone] Allergies Active Allergy Reactions Criticality Noted Date [...] Site/Laterality Comments COLONOSCOPY W/ BIOPSIES 1997 PROCEDURE: [place] COLONOSCOPY STOMA W/BIOPSY SINGLE/MULTIPLE; COMMENT: r/o crohn's OTHER SURGICAL HISTORY 1997 PROCEDURE: OUTSIDE ENDOSCOPY OTHER SURGICAL HISTORY 2014 PROCEDURE: ---- OTHER ----; COMMENT: d&c august OTHER SURGICAL HISTORY 2015 PROCEDURE: ---- OTHER ----; COMMENT: miscarriage #3 TUBAL LIGATION 12/19/2020 PROCEDURE: HISTORICAL TUBAL LIGATION; COMMENT: Dr. Wlicox Medical History Medical History Date Comments Gilbert [...] Most Recently Relevant to Health Maintenance Insurance [facility] MEDICAID - [place] Care Teams Pig Breeder Relationship Specialty Start Date End Date Louise Van [address] [place] [phone] PCP - General 01/30/24
--- OUTSIDE RECORDS SUMMARY | 2025-07-19 19:31 | XMS_ITS | Clinical Summary ---
Author Organization [facility] Address [address] [address] Phone Care Team Providers Care Evening Anchor Name Role Phone Kennedi Avila DESKTOP MANAGER Primary Care Provider + Allergies Active Allergy [...] topic Medical Devices Not on file [place] [address] [place] [address] [place] [address] [place] [address] [place] [address] [place] [address] [place] [address] [place] [address] [place] [address] [place] [address] [place] Care Teams Evening Anchor Relationship Specialty Start Date End Date Kennedi Avila NP [address] [place] [id number] PCP - General Nurse Practitioner 09/09/23 Additional Source Comments The information contained in this document represents components of the legal health record. It is not the complete legal health record.[facility]
== END 2025-07-19 14:50 | disposition home or self-care (01) ==
LOC: HO.HMCFMS 14:26
PROVIDERS: PCP Registered Nurse; Visit Provider Student in an Organized Health Care Education/Training Program
DX: D50.9 Iron deficiency anemia, unspecified (principal); E78.5 Hyperlipidemia, unspecified

== ENCOUNTER 2025-08-08 13:10 | Outpatient (REF) | payer OTHER, MEDICAID, SELFPAY ==
--- NOTE | ~2025-08-08 | MM_ITS ---
EXAMINATION(S): MM DIAGNOSTIC DIGITAL BREAST TOMOSYNTHESIS, BILATERAL CLINICAL INFORMATION: -Patient status post ultrasound-guided needle core biopsy at [facility] on July 12, 2024 two right breast findings as follows: 5:00 subareolar (wing clip) and 12:00 at 2 cm from the nipple (ribbon shape clip). 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 Results of both sites were considered concordant with imaging findings. In accordance to the [place] [employer] and Society of Breast Imaging 2024 Guidelines for the Management of Benign Breast Fibroepithelial Lesions recently published in the [facility] Published Online: July 20, 2025: Patients with core biopsy-proven concordant fibroadenomas do not require imaging follow-up and may return to age-appropriate screening. -Requisition describes Reason for Exam: Diffuse cystic mastopathy of unspecified breast. -Today, patient denies any palpable concern or focal pain in either breast. COMPARISON: All images from [facility]. Ultrasound-guided needle core biopsy of the right breast on July 12, 2024. Right breast ultrasound on June 30, 2024. Bilateral mammogram on June 18, 2024. TECHNIQUE: Digital breast tomosynthesis is performed in both the mediolateral oblique and craniocaudal views along with computer-aided detection (CAD). Synthesized 2D images are generated from the tomosynthesis. FINDINGS: BREAST COMPOSITION: The breasts are heterogeneously dense, which may obscure small masses. RIGHT BREAST: Two tissue markers from previous needle core biopsies. No significant masses, suspicious calcifications or other abnormalities are seen. LEFT BREAST: No significant masses, suspicious calcifications or other abnormalities are seen. MM/MM tomosynthesis diagnostic BI IMPRESSION: BILATERAL BREASTS: Benign, no mammographic evidence of malignancy. Clinical follow-up is recommended. Otherwise, normal interval follow-up mammogram is recommended in 12 months. ASSESSMENT: BI-RADS: Category 2: Benign RECOMMENDATION: 1. Patient should be managed based on the clinical impression. 2. Otherwise, routine annual screening mammography. Results were provided to the patient at time of visit by the technologist. This patient's information was entered into a reminder system with a target due date for their next mammogram. Electronically signed by: Sukhdev Rossi MD 08/08/2025 02:21 PM [facility]
--- OUTSIDE RECORDS SUMMARY | 2025-08-08 15:19 | XMS_ITS | Clinical Summary ---
Author Organization [facility] Address [address] [place] [address] Care Team Providers Care Senior Back End Java Developer Name Role Phone Pcp, No Primary Care [...] patient's age to complete this topic Insurance [facility] Care Teams Senior Back End Java Developer Relationship Specialty Start Date End Date Pcp, No PCP - General General Medicine 06/15/22
--- OUTSIDE RECORDS SUMMARY | 2025-08-08 15:19 | XMS_ITS | Clinical Summary ---
Author Organization [facility] [address] [place] [address] [place] [phone] Phone Care Team Providers Care Cement Crusher Operator Name Role Phone Rehan Louise Alessandra Primary Care Provider [phone] Allergies Active Allergy Reactions Criticality Noted Date [...] Site/Laterality Comments COLONOSCOPY W/ BIOPSIES 1997 PROCEDURE: [place] COLONOSCOPY STOMA W/BIOPSY SINGLE/MULTIPLE; COMMENT: r/o crohn's [...] Most Recently Relevant to Health Maintenance Insurance [facility] [place]ICAID - [place] Care Teams Cement Crusher Operator Relationship Specialty Start Date End Date Louise Van [address] [place] [phone] PCP - General 01/30/24
--- OUTSIDE RECORDS SUMMARY | 2025-08-08 15:20 | XMS_ITS | Clinical Summary ---
Author Organization [facility] Address [address] [place] [address] Phone Care Team Providers Care Day Camp Counselor Name Role Phone Kennedi Avila MICHAEL Primary Care Provider [phone] Allergies Active Allergy Reactions Criticality Noted Date [...] patient's age to complete this topic Insurance [facility] Medicaid [place] [address] [place], [place] [facility] Medicaid [place] Care Teams Day Camp Counselor Relationship Specialty Start Date End Date Kennedi Avila DNP [address] [place] [address] PCP - General Nurse Practitioner 05/17/24
== END 2025-08-08 13:11 | disposition home or self-care (01) ==
LOC: HO.MAMMO 13:10
PROVIDERS: PCP Student in an Organized Health Care Education/Training Program; Visit Provider Student in an Organized Health Care Education/Training Program
DX: N60.11 Diffuse cystic mastopathy of right breast (principal)
CPT/HCPCS: 77062; 77066

== ENCOUNTER → 2025-08-08 13:30 | Outpatient (BNV) | payer OTHER, MEDICAID, SELFPAY | PROVIDERS: PCP Student in an Organized Health Care Education/Training Program; Visit Provider Radiology Body Imaging | DX: R92.8 Other abnormal and inconclusive findings on diagnostic imaging of breast (principal) | CPT/HCPCS: 77062; 77066 ==